=== PATIENT | female | born 1955 | race African-American/Black ===

== ENCOUNTER 2018-12-31 21:27 | Emergency (ER) | payer OTHER ==
[~2018-12-31] VITALS: Ht 167.6 cm; Wt 129.3 kg
[2018-12-31 21:35] VITALS: BP 119/57
--- NOTE | 2018-12-31 21:54 | PHYS DOC ---
Adult General Chief Complaint Chief Complaint: DENTAL PROBLEM HPI HPI Patient is a 63 year old female that presents to the emergency department for dental pain. The patient states she had orthopedic procedure done 6 weeks ago and her dentist wants to remove some teeth after falling off the teeth. The pa bi states 3 days ago she started having dental pain in her upper 3. The patient takes narcotics for chronic pain. In the patient states that she took some hydrocodone today that did not help the pain. She called her family doctor who placed her on Augmentin. She started taking that today however pain is still 9 out of 10 in severity and sharp. (TAMY BALBUENA APRN) Review of Systems Review of Systems Constitutional: Denies fever or chills [] Eyes: Denies change in visual acuity, redness, or eye pain [] HENT: Reports Dental pain. Respiratory: Denies cough or shortness of breath [] Cardiovascular: No additional information not addressed in HPI [] GI: Denies abdominal pain, nausea, vomiting, bloody stools or diarrhea [] : Denies dysuria or hematuria [] Musculoskeletal: Denies back pain or joint pain [] Integument: Denies rash or skin lesions [] Neurologic: Denies headache, focal weakness or sensory changes [] Endocrine: Denies polyuria or polydipsia [] Complete systems were reviewed and found to be within normal limits, except as documented in this note. (TAMY BALBUENA APRN) Current Medications Current Medications Current Medications Medications (Trade) Dose Ordered Sig/Shelia Start Time Stop Time Status Last Admin Dose Admin Lidocaine HCl (Viscous Lidocaine) 15 ml 1X ONCE 12/31/18 22:30 12/31/18 22:31 DC 12/31/18 22:18 15 ML (TAMY NIELSEN DO) Allergies Allergies Allergies Coded Allergies Type Severity Reaction Last Updated Verified silver Allergy Intermediate 12/31/18 Yes (TAMY NIELSEN DO) Physical Exam Physical Exam Constitutional: Well developed, well nourished, no acute distress, non-toxic appearance. [] HENT: Normocephalic, atraumatic, bilateral external ears normal, oropharynx moist, no oral exudates, nose normal. Tooth # 3 is missing cap and has mild edema. Eyes: PERRLA, EOMI, conjunctiva normal, no discharge. [] Neck: Normal range of motion, no tenderness, supple, no stridor. [] Skin: Warm, dry, no erythema, no rash. [] Back: No tenderness, no CVA tenderness. [] Extremities: No tenderness, no cyanosis, no clubbing, ROM intact, no edema. [] Neurologic: Alert and oriented X 3, normal motor function, normal sensory function, no focal deficits noted. [] Psychologic: Affect normal, judgement normal, mood normal. [] (TAMY BALBUENA APRN) Current Patient Data Vital Signs Vital Signs Date Time Temp Pulse Resp B/P (MAP) Pulse Ox O2 Delivery O2 Flow Rate FiO2 12/31/18 21:35 98.8 65 14 119/57 (77) 96 Room Air 98.8 (TAMY NIELSEN DO) EKG EKG [] (TAMY BALBUENA APRN) Radiology/Procedures Radiology/Procedures [] (TAMY BALBUENA APRN) Course & Med Decision Making Course & Med Decision Making Pertinent Labs and Imaging studies reviewed. (See chart for details) Patient has tried hydrocodone at home which has not helped. Patient already has hydrocodone at home. Will order Lidocaine to see if helps pain. Lidocaine improved pain will d/c home. (TAMY BALBUENA APRN) Dragon Disclaimer Dragon Disclaimer This electronic medical record was generated, in whole or in part, using a voice recognition dictation system. (TAMY BALBUENA APRN) Departure Departure Impression: Primary Impression: Dental abscess Disposition: HOME, SELF-CARE Condition: STABLE Referrals: UNKNOWN PCP NAME (PCP) Patient Instructions: Carbamide Peroxide dental solution, Dental Abscess Additional Instructions: Thank you for visiting [facility]. We appreciate you trusting us with your care. If any additional problems come up don't hesitate to return to visit us. Please follow up with your primary care provider so they can plan additional care if needed and know about the problem that you had. If symptoms worsen come back to the Emergency Department. Any concerning symptoms that start such as chest pain, shortness of air, weakness or numbness on one side of the body, running high fevers or any other concerning symptoms return to the ER. Please follow up with your dentist. Continue taking Augmentin as prescribed. Attending Signature Attending Signature I have reviewed the PA/BRIDGE RIGGER's note and plan of care. I was available for consultation as needed during the patient's visit in the emergency department. I agree with the clinical impression, plan, and disposition. (TAMY NIELSEN DO) TAMY BALBUENA APRN Dec 31, 2018 21:54 TAMY NIELSEN DO Jan 01, 2019 00:25
[2018-12-31] MEDS ORDERED: LIDOCAINE 2% VISCOUS 15 ML SOLUTION. MM ONE (22:30)
== END 2018-12-31 22:45 | disposition home or self-care (01) ==
LOC: ER 21:27
DX: K04.7 Periapical abscess without sinus (principal); G89.29 Other chronic pain; Z91.09 Other allergy status, other than to drugs and biological substances
CPT/HCPCS: 99282